=== PATIENT | male | born 1990 | race Caucasian/White ===

== ENCOUNTER 2019-06-12 13:31 | Emergency (ER) | payer OTHER, SELFPAY ==
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
[2019-06-12 13:36] VITALS: BP 155/99; PULSE 92; RESP 20; TEMP 36.3; O2SAT 100
[2019-06-12 13:54] LABS: Basophils Absolute Auto 0.1 K/mm3 (0.0-0.1); Basophils Percent Auto 0.5 % (0.2-1.2); Eosinophils Absolute Auto 0.1 K/mm3 (0-0.3); Eosinophils Percent Auto 0.4 % (0-4.4); Hematocrit 44.4 % (42.0-52.0); Hemoglobin 14.9 g/dL (14.0-18.0); Immature Granulocyte Absolute 0.06 K/mm3 (0.00-0.031); Immature Granulocyte Percent A 0.4 % (0-0.5); Lymphocytes Absolute Auto 1.53 K/mm3 (0.9-3.2); Lymphocytes Percent Auto 8.9 % (18.3-44.2); Mean Corpuscular HGB Conc 33.6 g/dl (32-36); Mean Corpuscular Hemoglobin 32.5 pg (26-34); Mean Corpuscular Volume 96.9 fl (80-100); Mean Platelet Volume 8.6 fl (7.4-10.4); Monocytes Absolute Auto 1.1 K/mm3 (0.1-0.6); Monocytes Percent Auto 6.3 % (2.6-8.5); Neutrophils Absolute Auto 14.3 K/mm3 (1.3-6.7); Neutrophils Percent Auto 83.5 % (45.5-73.1); Platelet Count Result 585 k/mm3 (150-375); Red Blood Count 4.58 M/mm3 (4.6-6.20); Red Cell Distribution Width 13.3 % (11.5-14.5); White Blood Count 17.1 K/mm3 (4.5-10.0)
[2019-06-12 14:11] LABS: Alanine Aminotransferase 113 U/L (4-50); Albumin Level 4.7 g/dL (3.5-5.1); Alkaline Phosphatase 80 U/L (38-126); Aspartate Amino Transferase 71 U/L (17-59); Bilirubin,Total 0.5 mg/dL (0.2-1.3); Blood Urea Nitrogen 9 mg/dL (9-20); Calcium 9.5 mg/dL (8.4-10.2); Carbon Dioxide 29 mmol/L (22-30); Chloride 104 mmol/L (98-107); Estimated Glomerular Filt Rate > 60; Glucose 100 mg/dL (75-110); Lipase 50 U/L (23-300); Potassium 4.1 mmol/L (3.4-5.0); Sodium 140 mmol/L (137-145)
--- NOTE | 2019-06-12 14:32 | ED.NAVMDI ---
HPI - Nausea/Vomiting/Diarrhea General Chief complaint: Nausea/Vomiting/Diarrhea <TREE Harrell Last Filed: 06/12/19 16:24> Stated complaint: vomiting blood <TREE Harrell Last Filed: 06/12/19 16:24> Time Seen by Provider: 06/12/19 13:56 <TREE Harrell Last Filed: 06/12/19 16:24> Source: patient <TREE Harrell Last Filed: 06/12/19 16:24> Mode of arrival: ambulatory <TREE Harrell Last Filed: 06/12/19 16:24> Limitations: no limitations <TREE Harrell Last Filed: 06/12/19 16:24> History of Present Illness HPI Narrative: Patient is a 28-year-old male who presents to emergency department with acute onset of nausea and vomiting that began this morning with periumbilical abdominal pain made worse with p.o. intake patient notes that he attempted to eat this morning but was unable to due to nausea and vomiting patient on arrival is resting comfortably in the room in no distress. Patient notes intermittent vomiting with some blood that was noticed bright red. Patient has had had similar occurrence in the past unsure as to the etiology. Patient has not taken anything for symptoms and presents per private vehicle in no distress <TREE Harrell Last Filed: 06/12/19 16:24> Related Data Home medications: Home Medications Medication Instructions Recorded Confirmed albuterol sulfate 2 puff INHALATION QID PRN 06/12/19 <TREE Harrell Last Filed: 06/12/19 16:24> Allergies/Adverse reactions: Allergies Allergy/AdvReac Type Severity Reaction Status Date / Time codeine AdvReac Unknown N/V Verified 06/12/19 14:04 PROPOXYPHENE NAPSYLATE Allergy Mild HIVES Uncoded 06/12/19 14:04 <TREE Harrell Last Filed: 06/12/19 16:24> Review of Systems Review of Systems: All systems reviewed & are unremarkable except as noted in HPI and below <TREE Harrell Last Filed: 06/12/19 16:24> [facility] Social History Social History: Social History Substance use type: marijuana <Gerson Roe PA-C - Last Filed: 06/12/19 16:24> Exam Narrative: Exam Narrative: GENERAL: Well-appearing, well-nourished, and in no acute distress. HEAD: Normocephalic, atraumatic. EYES: PERRLA and EOMI. ENT: Nares clear, no rhinorrhea or epistaxis. Mucous membranes moist. Oropharynx without tonsillar hypertrophy exudate or other lesions. CHEST: Clear to auscultation. No respiratory distress. No wheezes rales or rhonchi HEART: Regular rate and rhythm. No murmur heard. Normal peripheral pulses. ABDOMEN: Soft, periumbilical tenderness to palpation no rebound or guarding, nondistended EXTREMITIES: Normal range of motion. No edema. SKIN: Warm, dry, no rash. NEURO: No focal deficits. Alert and oriented x3. Cranial nerves II through XII grossly intact PSYCH: Normal mood and affect. <Gerson Reo PA-C - Last Filed: 06/12/19 16:24> Course Course Emergency Course: Patient in the room at this time aware of case findings treatment plan and diagnosis agreeing to follow-up as directed or to return if symptoms worsen or concerns patient is afebrile nontoxic-appearing right now. Patient able to tolerate p.o. intake without emesis is noting feeling better patient notes that he will follow with urology and primary care for further evaluation and was also provided with reasons to return. Patient possibly having had passed a kidney stone as etiology for his pain <Gerson Roe PA-C - Last Filed: 06/12/19 16:24> Vital Signs Vital signs: Vital Signs Temperature 97.3 F L 06/12/19 13:36 Pulse Rate 92 06/12/19 13:36 Respiratory Rate 20 06/12/19 13:36 Blood Pressure 155/99 H 06/12/19 13:36 Pulse Oximetry 100 06/12/19 13:36 Temperature 97.3 F L 06/12/19 13:36 Pulse Rate 78 06/12/19 15:45 Respiratory Rate 14 06/12/19 15:45
[2019-06-12 14:34] LABS: Add Urine Microscopic? YES; Appearance Urine Clear (Clear); Bilirubin Urine Negative (Negative); Blood Urine 3+ (Negative); Color Urine Yellow (Yellow); Glucose Urine UA Negative (Negative); Ketones Urine Negative (Negative); Leukocyte Esterase Ur Negative LEU/UL (Negative); Mucus Urine Few /lpf; Nitrate Urine Negative (Negative); Protein Urine 1+ mg/dL (Negative); RBC Urine >75 /hpf (0-2); Specific Grav Ur 1.017 (1.001-1.035); Urobilinogen Urine Negative mg/dL (<2.0); WBC Urine 0-3 /hpf
[2019-06-12] MEDS: ONDANSETRON INJ 4 MG/2 ML VIAL IV PUSH (14:47)
[2019-06-12] MEDS: SODIUM CHLORIDE 0.9% IV 1,000 ML 999 ML IV CONT (14:47)
[2019-06-12 14:48] VITALS: BP 144/94; PULSE 58; RESP 18; O2SAT 100
[2019-06-12] MEDS: FAMOTIDINE 20 MG/2 ML VIAL IV PUSH (14:48)
[2019-06-12] MEDS: KETOROLAC 30 MG/ML VIAL (*BKC) IV PUSH (15:43)
[2019-06-12 15:45] VITALS: BP 145/96; PULSE 78; RESP 14; O2SAT 100
[2019-06-12 16:33] VITALS: BP 144/96; PULSE 69; RESP 14; O2SAT 100
== END 2019-06-12 16:34 | disposition home or self-care (01) ==
PROVIDERS: Emergency Provider General Practice
DX: R10.33 Periumbilical pain (principal); N13.2 Hydronephrosis with renal and ureteral calculous obstruction
CPT/HCPCS: 36415; 74177; 80053; 81001; 83690; 85025; 96361; 96374; 96375; 99284; J1885; J2405; J7030; Q9967

== ENCOUNTER 2021-10-22 18:52 | Emergency (ER) | payer OTHER, SELFPAY ==
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
[2021-10-22 18:55] VITALS: BP 137/95; PULSE 105; RESP 20; TEMP 37; O2SAT 96
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
--- NOTE | 2021-10-22 20:33 | PC.NURSE ---
This RN went back into room to reassess pt but patient was not in room. After 15 minutes it is assumed that patient left the ED after seeing the provider but before receiving imaging results. Upon questioning of several staff members it was communicated to this RN that the registration clerks witnessed patient walking towards the waiting room while on the phone with someone.
--- NOTE | 2021-10-22 20:34 | PC.NURSE ---
patient departure communicated to .
== END 2021-10-22 20:36 | disposition left against medical advice (07) ==
LOC: ANHED 20:28
PROVIDERS: Emergency Provider Emergency Medicine
DX: S16.1XXA Strain of muscle, fascia and tendon at neck level, initial encounter (principal); S40.012A Contusion of left shoulder, initial encounter; V48.5XXA Car driver injured in noncollision transport accident in traffic accident, initial encounter
CPT/HCPCS: 70450; 71046; 72125; 73030; 99284

== ENCOUNTER 2021-12-25 16:10 | Emergency (ER) | payer OTHER, SELFPAY ==
[2021-12-25 16:29] VITALS: BP 124/98; PULSE 94; RESP 16; TEMP 36.5; O2SAT 100
== END 2021-12-25 17:01 | disposition left against medical advice (07) ==
PROVIDERS: Emergency Provider Internal Medicine Hematology & Oncology
DX: Z53.21 Procedure and treatment not carried out due to patient leaving prior to being seen by health care provider (principal)
CPT/HCPCS: 99199